=== PATIENT | female | born 1960 | race Caucasian/White ===

== ENCOUNTER 2017-11-26 10:05 | Emergency (ER) | payer OTHER ==
[~2017-11-26] VITALS: Ht 167.6 cm; Wt 75.3 kg
[2017-11-26 12:28] LABS: HEMATOCRIT 37.1 % (36.0-46.0); HEMOGLOBIN 12.6 G/DL (11.9-15.5); MCH 31.5 PG (29.0-34.0); MCV 92.8 FL (83-99); RBC DIS.WIDTH-CV 13.7 % (11.8-14.6); RBC DIS.WIDTH-SD 46.9 % (39-53); WHITE BLOOD COUNT 12.9 K/uL (4.1-10.2)
[2017-11-26 12:39] LABS: ALBUMIN 3.9 g/dL (3.2-4.8); CHLORIDE 105 mEq/L (99-109); POTASSIUM 3.8 mEq/L (3.7-5.4); SODIUM 142 mEq/L (136-147)
[2017-11-26 12:41] LABS: GLUCOSE 105 mg/dL (70-99); TOTAL PROTEIN 6.6 g/dL (6.4-8.3)
[2017-11-26 12:43] LABS: TOTAL BILIRUBIN 0.8 mg/dL (0.0-1.0)
[2017-11-26 12:45] LABS: ALKALINE PHOSPHATASE 63 IU/L (3-129); CREATININE 0.7 mg/dL (0.6-1.3); GFR ESTIMATE (CALCULATED) > 59 mL/min/
[2017-11-26 12:46] LABS: AST (GOT) 19 IU/L (2-34); UREA NITROGEN (BUN) 8 mg/dL (9-23)
[2017-11-26 12:48] LABS: ALT (GPT) 13 IU/L (3-49)
[2017-11-26] MEDS ORDERED: PERCOCET 5/31 TABLET PO (12:56)
[2017-11-26] MEDS ORDERED: MOTRIN800 MG PO (12:56)
[2017-11-26 13:10] LABS: PLAT.SUFFICIENCY ADEQUATE; PLATELET COUNT 312 K/uL (156-360)
[2017-11-26 13:12] VITALS: BP 149/97
== END 2017-11-26 13:13 | disposition home or self-care (01) ==
LOC: EME 10:05
PROVIDERS: Nurse Practitioner Family
PROC: 2W39X1Z Immobilization of Left Upper Extremity using Splint (ICD-10-PCS; principal; 2017-11-26)
DX: S52.022A Displaced fracture of olecranon process without intraarticular extension of left ulna, initial encounter for closed fracture (principal); W18.30XA Fall on same level, unspecified, initial encounter; Y93.01 Activity, walking, marching and hiking; Y92.008 Other place in unspecified non-institutional (private) residence as the place of occurrence of the external cause; I10 Essential (primary) hypertension; E78.5 Hyperlipidemia, unspecified; Z72.0 Tobacco use
CPT/HCPCS: 71046; 73070; 73090; 80053; 85027; 93005; 99281; 99284